=== PATIENT | female | born 1960 | race Hispanic/Latino ===

== ENCOUNTER → 2018-08-29 | Outpatient (REF) | payer MEDICARE, OTHER ==
[~2018-08-29] MED LIST: ATORVASTATIN CA40 MG PO; LISINOPRIL20 MG PO; METFORMIN500 MG PO; NOVOLOG MIX SC; TRILEPTAL150 M1 PO
[2018-08-29 13:03] LABS: HEMATOCRIT 35.7 % (37.0-47.0); HEMOGLOBIN 11.2 g/dl (12.0-16.0); IMMATURE GRANULOCYTES 0.4 % (0.0-5.0); MEAN CELL VOLUME 81.3 fL CALC (80.0-100.0); MEAN CORPUSCULAR HGB 25.5 pG CALC (26.0-32.0); MEAN CORPUSCULAR HGB CONC 31.4 g/L CALC (32.0-36.0); NEUT# 5.69 thou/uL (2.00-7.15); RED BLOOD COUNT 4.39 mill/uL (4.20-5.60); RED CELL DISTRI WIDTH 13.6 % (11.5-15.5)
== END | disposition home or self-care (01) ==
LOC: LAB 12:04
PROVIDERS: ATTEND Obstetrics & Gynecology
DX: N93.9 Abnormal uterine and vaginal bleeding, unspecified (principal)

== ENCOUNTER → 2018-09-01 | Outpatient (REF) | payer MEDICARE, OTHER | END | disposition home or self-care (01) | LOC: MAMMO 08:00 → ULTRASND 08:45 → MAMMO 12:37 | PROVIDERS: ATTEND Obstetrics & Gynecology | DX: Z12.31 Encounter for screening mammogram for malignant neoplasm of breast (principal); Z01.419 Encounter for gynecological examination (general) (routine) without abnormal findings; N93.9 Abnormal uterine and vaginal bleeding, unspecified ==

== ENCOUNTER → 2018-09-23 | Outpatient (REF) | payer MEDICARE, OTHER ==
[2018-09-23 10:37] LABS: HEMATOCRIT 34.9 % (37.0-47.0); HEMOGLOBIN 10.7 g/dl (12.0-16.0); IMMATURE GRANULOCYTES 0.3 % (0.0-5.0); MEAN CELL VOLUME 81.9 fL CALC (80.0-100.0); MEAN CORPUSCULAR HGB 25.1 pG CALC (26.0-32.0); MEAN CORPUSCULAR HGB CONC 30.7 g/L CALC (32.0-36.0); NEUT# 5.93 thou/uL (2.00-7.15); RED BLOOD COUNT 4.26 mill/uL (4.20-5.60); RED CELL DISTRI WIDTH 13.3 % (11.5-15.5)
[2018-09-23 10:37] LABS: URINE BILIRUBIN - DIPSTICK NEGATIVE (NEGATIVE); URINE BLOOD DIPSTICK SMALL (NEGATIVE); URINE COLOR YELLOW; URINE GLUCOSE - DIPSTICK NEGATIVE (NEGATIVE); URINE KETONE NEGATIVE (NEGATIVE); URINE LEUK ESTERASE TRACE (Negative); URINE NITRITE - DIPSTICK NEGATIVE (Negative); URINE PH 5.5 (4.5-8.0); URINE PROTEIN - DIPSTICK TRACE mg/dL (NEG-TRACE); URINE SPECIFIC GRAVITY >=1.030; URINE UROBILINOGEN - DIPSTICK 0.2 E.U./dL (0.2)
[2018-09-23 10:39] LABS: URINE CLARITY SL CLOUDY; URINE EPITHELIAL CELLS FEW EPI/hpf (0-FEW); URINE RBC 0-2 RBC/hpf (0-5); URINE WBC 0-2 WBC/hpf (0-5)
[2018-09-23 10:40] LABS: URINE BACTERIA RARE hpf
[2018-09-23 11:04] LABS: ALBUMIN 4.4 g/dL (3.2-5.0); ALKALINE PHOSPHATASE 89 u/l (38-126); ANION GAP 15 (6-22 (CALC)); BILIRUBIN, TOTAL 0.7 mg/dL (0.0-1.4); BUN 25 mg/dL (7-17); BUN/CREATININE RATIO 24 (12-20 (CALC)); CALCULATED LDLCHOLESTEROL 53 mg/dL (62-129 (CALC)); CARBON DIOXIDE 25 mmol/l (22-30); CHLORIDE 104 mmol/l (95-108); CHOLESTEROL HDL RATIO 2.7 (<4.4 (CALC)); GFR 58 ML/MIN (>=60 (CALC)); GFR FOR AFR.AMER. > 60 ML/MIN (>=60 (CALC)); HDL CHOLESTEROL 42 mg/dL (>=40); POTASSIUM 4.6 mmol/l (3.5-5.1); SGOT/AST 15 u/l (14-36); SODIUM 139 mmol/l (137-146); TOTAL CHOLESTEROL 114 mg/dl (0-199); TOTAL PROTEIN 8.1 g/dL (6.3-8.2); TOTAL TRIGLYCERIDES 95 mg/dl (30-149); VLDL CHOLESTROL 19 mg/dl (2-49 (CALC))
[2018-09-23 11:29] LABS: TSH, 3RD GENERATION 2.34 uIU/mL (0.47 - 4.68)
== END | disposition home or self-care (01) ==
LOC: LAB 09:49
PROVIDERS: Family Medicine; ATTEND Internal Medicine Endocrinology, Diabetes & Metabolism
DX: E11.65 Type 2 diabetes mellitus with hyperglycemia (principal); N18.9 Chronic kidney disease, unspecified; D51.8 Other vitamin B12 deficiency anemias; I10 Essential (primary) hypertension; E11.69 Type 2 diabetes mellitus with other specified complication; Z00.00 Encounter for general adult medical examination without abnormal findings; E55.9 Vitamin D deficiency, unspecified

== ENCOUNTER 2018-09-27 14:19 | Emergency (ER) | payer MEDICARE, OTHER ==
[~2018-09-27] VITALS: Ht 157.5 cm; Wt 61.4 kg
[2018-09-27] MEDS ORDERED: ATORVASTATIN CA40 MG PO (14:36)
[2018-09-27] MEDS ORDERED: LISINOPRIL20 MG PO (14:36)
[2018-09-27] MEDS ORDERED: METFORMIN500 MG PO (14:36)
[2018-09-27] MEDS ORDERED: TRILEPTAL150 M1 PO (14:37)
[2018-09-27] MEDS ORDERED: NOVOLOG MIX SC ×2 (14:37→14:38)
[2018-09-27 14:53] LABS: HEMOGLOBIN 11.2 g/dl (12.0-16.0); IMMATURE GRANULOCYTES 0.6 % (0.0-5.0); MEAN CELL VOLUME 83.7 fL CALC (80.0-100.0); MEAN CORPUSCULAR HGB 25.3 pG CALC (26.0-32.0); MEAN CORPUSCULAR HGB CONC 30.3 g/L CALC (32.0-36.0); NEUT# 10.14 thou/uL (2.00-7.15); RED BLOOD COUNT 4.42 mill/uL (4.20-5.60); RED CELL DISTRI WIDTH 13.3 % (11.5-15.5)
[2018-09-27 14:58] LABS: ALBUMIN 4.8 g/dL (3.2-5.0); ALKALINE PHOSPHATASE 86 u/l (38-126); ANION GAP 17 (6-22 (CALC)); BILIRUBIN, TOTAL 0.3 mg/dL (0.0-1.4); BUN 19 mg/dL (7-17); BUN/CREATININE RATIO 19 (12-20 (CALC)); CARBON DIOXIDE 25 mmol/l (22-30); CHLORIDE 107 mmol/l (95-108); GFR 58 ML/MIN (>=60 (CALC)); GFR FOR AFR.AMER. > 60 ML/MIN (>=60 (CALC)); POTASSIUM 3.6 mmol/l (3.5-5.1); SGOT/AST 26 u/l (14-36); SODIUM 145 mmol/l (137-146)
[2018-09-27 16:25] VITALS: BP 151/66
== END 2018-09-27 16:30 | disposition home or self-care (01) ==
LOC: ED 14:19
PROVIDERS: Emergency Medicine
DX: E11.649 Type 2 diabetes mellitus with hypoglycemia without coma (principal); Z79.4 Long term (current) use of insulin; R11.10 Vomiting, unspecified

== ENCOUNTER 2019-05-03 10:46 | Emergency (ER) | payer MEDICARE, OTHER ==
[~2019-05-03] VITALS: Ht 157.5 cm; Wt 59.0 kg
[2019-05-03] MEDS ORDERED: NOVOLOG MIX100 U/ML SC (10:57)
[2019-05-03] MEDS ORDERED: LORAZEPAM0.5 MG PO (10:57)
[2019-05-03] MEDS ORDERED: RISPERIDONE0.5 MG PO (10:57)
[2019-05-03 11:52] LABS: URINE BILIRUBIN - DIPSTICK SMALL (NEGATIVE); URINE BLOOD DIPSTICK SMALL (NEGATIVE); URINE COLOR YELLOW; URINE GLUCOSE - DIPSTICK NEGATIVE (NEGATIVE); URINE KETONE NEGATIVE (NEGATIVE); URINE LEUK ESTERASE NEGATIVE (NEGATIVE); URINE NITRITE - DIPSTICK NEGATIVE (Negative); URINE PROTEIN - DIPSTICK 100 mg/dL (NEG-TRACE); URINE SPECIFIC GRAVITY >=1.030; URINE UROBILINOGEN - DIPSTICK 0.2 E.U./dL (0.2)
[2019-05-03 11:53] LABS: HEMOGLOBIN 10.6 g/dl (12.0-16.0); IMMATURE GRANULOCYTES 0.5 % (0.0-5.0); MEAN CELL VOLUME 80.6 fL CALC (80.0-100.0); MEAN CORPUSCULAR HGB 25.1 pG CALC (26.0-32.0); MEAN CORPUSCULAR HGB CONC 31.2 g/L CALC (32.0-36.0); NEUT# 12.76 thou/uL (2.00-7.15); RED BLOOD COUNT 4.22 mill/uL (4.20-5.60); RED CELL DISTRI WIDTH 13.7 % (11.5-15.5)
[2019-05-03 12:02] LABS: URINE SQUAMOUS EPITHELIAL CELL FEW EPI/hpf (0-FEW)
[2019-05-03 12:22] LABS: ALBUMIN 4.5 g/dL (3.2-5.0); ALKALINE PHOSPHATASE 107 u/l (38-126); ANION GAP 18 (6-22 (CALC)); BILIRUBIN, TOTAL 0.4 mg/dL (0.0-1.4); BUN 18 mg/dL (7-17); BUN/CREATININE RATIO 24 (12-20 (CALC)); CARBON DIOXIDE 25 mmol/l (22-30); CHLORIDE 105 mmol/l (95-108); CREATININE 0.8 mg/dL (0.5-1.0); GFR > 60 ML/MIN (>=60 (CALC)); GFR FOR AFR.AMER. > 60 ML/MIN (>=60 (CALC)); LIPASE 36 u/l (23-300); POTASSIUM 4.2 mmol/l (3.5-5.1); SGOT/AST 19 u/l (14-36); SODIUM 143 mmol/l (137-146); TOTAL PROTEIN 8.2 g/dL (6.3-8.2)
[2019-05-03] MEDS ORDERED: ZITHROMAX250 MG PO (15:55)
[2019-05-03] MEDS ORDERED: AMOXICILLIN875 MG PO (15:55)
[2019-05-03] MEDS ORDERED: ZOFRAN4 MG/TAB PO (15:56)
[2019-05-03 16:07] VITALS: BP 152/81
== END 2019-05-03 16:30 | disposition home or self-care (01) ==
LOC: ED 10:46
DX: J18.9 Pneumonia, unspecified organism (principal); F70 Mild intellectual disabilities; E11.9 Type 2 diabetes mellitus without complications; I10 Essential (primary) hypertension; Z79.4 Long term (current) use of insulin
CPT/HCPCS: Q9967

== ENCOUNTER 2019-05-03 20:27 | Inpatient (IN) | payer MEDICARE, OTHER ==
[~2019-05-03] VITALS: Ht 157.5 cm; Wt 67.4 kg
[~2019-05-03 20:27] MED LIST changes: +AMOXICILLIN875 MG PO; +LORAZEPAM0.5 MG PO; +NOVOLOG MIX100 U/ML SC; +RISPERIDONE0.5 MG PO; +ZITHROMAX250 MG PO; +ZOFRAN4 MG/TAB PO
--- NOTE | 2019-05-03 20:44 | NUR ---
AMBULATED TO ROOM
[2019-05-03 21:48] LABS: AMYLASE 50 u/l (30-110); LIPASE 60 u/l (23-300)
--- NOTE | 2019-05-03 22:30 | NUR ---
PT RESTING...STARTING TO FEEL A LITTLE BETTER AFTER THE DILAUDID. PT AWAITING ADMISSION. RESP EASY REG. VSS.
[2019-05-04 00:33] VITALS: BP 146/61
--- NOTE | 2019-05-04 00:46 | NUR ---
PT. TAKEN TO MS FLOOR VIA STRETCHER, NO C/O AT THIS TIME.
--- NOTE | 2019-05-04 01:00 | NUR ---
PT. ARRIVED AT @0043 BY STRETCHER AND ACCOMPANIED BY NURSE LEOLA GREENBERG AND PT'S SISTER. ADMISSION ASSESSMENT COMPLETED BY LEOLA GREENBERG. PT. AND FAMILY ORIENTED TO CALL LIGHT, ROOM, AND POC. SISTER OF PT. IS AT BEDSIDE AND STAYING THE NIGHT, SHE IS THE DIRECTOR LIFE SCIENCES OF PT. PT. IS ABLE TO VERBALIZE HER NEEDS AND WANTS. PT. IS NAUSEOUS AND MEDICATED WITH ORDERED PRN PEPCID AND ZOFRAN AND ORDERED IVF STARTED; WILL CONTINUE TO MONITOR. TELEMETRY IN PLACE AND JAKE HOSE APPLIED TO BLE. ENCOURAGED TO CALL FOR ANY NEEDS. CALL LIGHT IS IN REACH. WILL CONTINUE TO MONITOR.
[2019-05-04 03:10] LABS: HEMOGLOBIN 9.1 g/dl (12.0-16.0); IMMATURE GRANULOCYTES 0.5 % (0.0-5.0); MEAN CELL VOLUME 82.4 fL CALC (80.0-100.0); MEAN CORPUSCULAR HGB CONC 30.3 g/L CALC (32.0-36.0); NEUT# 10.67 thou/uL (2.00-7.15); RED BLOOD COUNT 3.64 mill/uL (4.20-5.60); RED CELL DISTRI WIDTH 14.1 % (11.5-15.5)
[2019-05-04 03:21] VITALS: BP 139/73
--- NOTE | 2019-05-04 03:21 | NUR ---
PT. DENIES NEEDS/PAIN. SISTER AT BEDSIDE. VSS; IV SITE PATENT. ENCOURAGED TO CALL FOR ANY NEEDS. CALL LIGHT IS IN REACH.
[2019-05-04 03:33] LABS: ALBUMIN 3.8 g/dL (3.2-5.0); ALKALINE PHOSPHATASE 88 u/l (38-126); ANION GAP 13 (6-22 (CALC)); BILIRUBIN, TOTAL 0.3 mg/dL (0.0-1.4); BUN 18 mg/dL (7-17); BUN/CREATININE RATIO 22 (12-20 (CALC)); CARBON DIOXIDE 26 mmol/l (22-30); CHLORIDE 110 mmol/l (95-108); CREATININE 0.9 mg/dL (0.5-1.0); GFR > 60 ML/MIN (>=60 (CALC)); GFR FOR AFR.AMER. > 60 ML/MIN (>=60 (CALC)); POTASSIUM 4.3 mmol/l (3.5-5.1); SGOT/AST 21 u/l (14-36); SODIUM 145 mmol/l (137-146); TOTAL PROTEIN 7.3 g/dL (6.3-8.2)
--- NOTE | 2019-05-04 05:49 | NUR ---
PT. C/O SEVERE ABD PAIN AND MEDICATED WITH ORDERED PRN DILAUDID; WILL REASSESS. ALSO REPORTS NAUSEA AND IS TOO EARLY FOR ZOFRAN; WILL ADMINISTER SHORTLY WHEN IT IS DUE.
[2019-05-04 07:44] VITALS: BP 128/66
--- NOTE | 2019-05-04 08:00 | NUR ---
ASSESSMENT DONE. PT IS A&O X2. IVF INFUSING WELL. PT NPO. TELE IN PLACE. SAFETY PRECAUTIONS IN REINFORCED AND CALL LIGHT IN REACH. SISTER IN ROOM.
[2019-05-04 09:56] LABS: CHOLESTEROL HDL RATIO 2.7 (<4.4 (CALC)); MAGNESIUM 1.6 mg/dL (1.6-2.3)
--- NOTE | 2019-05-04 09:57 | NUR ---
PT STATED PAIN IN ABD 10/10 AND CRYING. PT VOMITED 100ML . MEDICATED PT WITH DILAUDID FOR PAIN IN ABD SEE EMAR. NOTIFIED JOSE MANUEL GRAVES RE: PAIN AND VOMITED. ORDERS RECEIVED.
--- NOTE | 2019-05-04 12:00 | NUR ---
PT HAS PAIN IN ABD 02/21. PAIN MEDICATION NOT DUE YET. PT NPO. PT AND SISTER AWAITING FOR THE MRI. PT DENIES ANY OTHER NEEDS AT THIS TIME. CALL LIGHT IN REACH.
[2019-05-04 15:35] LABS: URINE BILIRUBIN - DIPSTICK NEGATIVE (NEGATIVE); URINE BLOOD DIPSTICK TRACE-LYSED (NEGATIVE); URINE COLOR YELLOW; URINE GLUCOSE - DIPSTICK NEGATIVE (NEGATIVE); URINE KETONE NEGATIVE (NEGATIVE); URINE LEUK ESTERASE NEGATIVE (NEGATIVE); URINE NITRITE - DIPSTICK NEGATIVE (Negative); URINE PH 5.5 (4.5-8.0); URINE PROTEIN - DIPSTICK TRACE mg/dL (NEG-TRACE); URINE SPECIFIC GRAVITY >=1.030; URINE UROBILINOGEN - DIPSTICK 0.2 E.U./dL (0.2)
--- NOTE | 2019-05-04 16:00 | NUR ---
PT DOWN IN MRI. ALI FROM MRI CALLED UNABLE TO DO MRI BECAUSE PT IS TRYING TO GET OUT . NOTIFIED JOSE MANUEL GRAVES
[2019-05-04 16:30] VITALS: BP 138/73
--- NOTE | 2019-05-04 19:10 | NUR ---
REPORT RECIEVED FROM LEOLA JIMÉNEZ. PT NOT ON FLOOR PT IN RADIOLOGY FOR ULTRA SOUND.
[2019-05-04 19:20] VITALS: BP 140/67
--- NOTE | 2019-05-04 21:18 | NUR ---
PT RESTING IN BED, SISTER AT BEDSIDE. PT CRYING IN PAIN. CALL CENTER SUPPORT REPRESENTATIVE PROVIDED PT WITH A WARM PACK. PT EDUCATED ON PAIN MED SCHEDULE. MD TO BE NOTIFIED. SAFETY PRECAUTIONS IN PLACE. WILL CONTINUE TO MONITOR.
[2019-05-04 23:45] VITALS: BP 138/78
--- NOTE | 2019-05-05 00:14 | NUR ---
PT RESTING IN BED. PROVIDED PT WITH NEW WARM PACKS PER REQUEST. PT STATES IT'S HELPING WITH HER PAIN. SAFETY PRECAUTIONS IN PLACE. WILL CONTINUE TO MONITOR.
[2019-05-05 04:42] VITALS: BP 143/79
--- NOTE | 2019-05-05 04:48 | NUR ---
PT REFUSING TO GET UP FOR DAILY WEIGHT. PT COMPLAINS OF NOT SLEEPING WELL AND JUST WANTS TO REST. SAFETY PRECAUTIONS IN PLACE. WILL CONTINUE TO MONITOR.
--- NOTE | 2019-05-05 07:13 | NUR ---
REPORT WAS RECEIVED FROM MATY. PT STATED PAIN IS 10/10 IN ABD. SISTER IN ROOM TEARFUL FOR PT HAVING PAIN. MEDICATED PT WITH DILAUDID SEE EMAR. PT IS A&O X2. PT NPO. IVF INFUSING WELL. CALL LIGHT IN REACH.
[2019-05-05 07:43] LABS: HEMATOCRIT 28.6 % (37.0-47.0); HEMOGLOBIN 8.6 g/dl (12.0-16.0); MEAN CELL VOLUME 82.7 fL CALC (80.0-100.0); MEAN CORPUSCULAR HGB 24.9 pG CALC (26.0-32.0); MEAN CORPUSCULAR HGB CONC 30.1 g/L CALC (32.0-36.0); RED BLOOD COUNT 3.46 mill/uL (4.20-5.60)
[2019-05-05 08:02] LABS: ALBUMIN 3.4 g/dL (3.2-5.0); ALKALINE PHOSPHATASE 81 u/l (38-126); ANION GAP 15 (6-22 (CALC)); BUN 17 mg/dL (7-17); BUN/CREATININE RATIO 19 (12-20 (CALC)); CARBON DIOXIDE 23 mmol/l (22-30); CHLORIDE 110 mmol/l (95-108); CREATININE 0.9 mg/dL (0.5-1.0); GFR > 60 ML/MIN (>=60 (CALC)); GFR FOR AFR.AMER. > 60 ML/MIN (>=60 (CALC)); POTASSIUM 3.8 mmol/l (3.5-5.1); SGOT/AST 23 u/l (14-36); SODIUM 144 mmol/l (137-146); TOTAL PROTEIN 6.8 g/dL (6.3-8.2)
[2019-05-05 08:03] LABS: BILIRUBIN, TOTAL 0.5 mg/dL (0.0-1.4)
[2019-05-05 08:08] VITALS: BP 137/48
--- NOTE | 2019-05-05 11:46 | NUR ---
PT DRINKING FLUIDS. PT STATED PAIN IN ABD IS 8/10. MEDICATED PT WITH DILAUDID SEE EMAR. IVF INFUSING WELL. EDUCATED PT HOW TO USE THE I.S. FAMILY FRIEND IN ROOM. CALL LIGHT IN REACH.
[2019-05-05 11:53] VITALS: BP 141/70
--- NOTE | 2019-05-05 13:26 | NUR ---
PT WENT DOWN TO CT VIA WHEELCHAIR BY VOLUNTEER.
[2019-05-05 15:24] VITALS: BP 143/74
--- NOTE | 2019-05-05 16:00 | NUR ---
PT IS RESTING IN BED WITH NO S/S OF DISTRESS NOTED. PT DENIES NEEDS AND FAMILY FRIEND IN ROOM. CALL LIGHT IN REACH.
[2019-05-05 19:10] VITALS: BP 125/73
--- NOTE | 2019-05-05 20:00 | NUR ---
RECEIVED REPORT FROM NURSE CASTANEDA, PATIENT RESTING IN BED WITH AN ONGOING IV OF NS @75CC/HR INFUSING WELL, WITH EVEN UNLABORED BREATHING CALL LIGHT AT REACH.
--- NOTE | 2019-05-05 20:02 | NUR ---
RECEIVED A PHONECALL FROM [facility] AND ORDERED CT OF THE ABDOMEN AND PELVIS USED ORAL CONTRAST.
[2019-05-05 23:47] VITALS: BP 136/63
--- NOTE | 2019-05-06 00:54 | NUR ---
PATIENT TRANSPORTED FOR DT AF ABDOMEN AT THIS TIME.
--- NOTE | 2019-05-06 01:18 | NUR ---
PATIENT BACK IN ROOM, PATOIENT TOLERATED PROCEDURE, ASSISTED TO BATHROOM, ASSISTED BACK IN BED
[2019-05-06 03:57] VITALS: BP 142/66
--- NOTE | 2019-05-06 04:47 | NUR ---
PATIENT APPEARS TO BE RESTING IN BED WITH EYES CLOSED REMAINS ON O2 @2LPM VIA NC WITH EVEN UNLABORED BREATHING, PLASTERER TENDER IN ROOM CALL LIGHT AT REACH.
[2019-05-06 05:04] LABS: HEMATOCRIT 26.9 % (37.0-47.0); HEMOGLOBIN 8.1 g/dl (12.0-16.0); IMMATURE GRANULOCYTES 0.5 % (0.0-5.0); MEAN CORPUSCULAR HGB 24.7 pG CALC (26.0-32.0); MEAN CORPUSCULAR HGB CONC 30.1 g/L CALC (32.0-36.0); NEUT# 9.04 thou/uL (2.00-7.15); RED BLOOD COUNT 3.28 mill/uL (4.20-5.60); RED CELL DISTRI WIDTH 13.7 % (11.5-15.5)
[2019-05-06 05:20] LABS: ANION GAP 11 (6-22 (CALC)); BUN 16 mg/dL (7-17); BUN/CREATININE RATIO 17 (12-20 (CALC)); CARBON DIOXIDE 24 mmol/l (22-30); CHLORIDE 109 mmol/l (95-108); CREATININE 0.9 mg/dL (0.5-1.0); GFR > 60 ML/MIN (>=60 (CALC)); GFR FOR AFR.AMER. > 60 ML/MIN (>=60 (CALC)); MAGNESIUM 1.6 mg/dL (1.6-2.3); SODIUM 141 mmol/l (137-146)
--- NOTE | 2019-05-06 06:55 | NUR ---
REPORT RECEIVED FROM LEOLA KUO. PT RESTING IN BED, SISTER AT BEDSIDE. NO S/S OF DISTRESS AT THIS TIME SAFETY PRECAUTIONS IN PLACE. WILL CONTINUE TO MONITOR.
--- NOTE | 2019-05-06 07:42 | NUR ---
PT RESTING IN BED, SISTER AT BEDSIDE. RESPIRATIOS EVEN AND UNLABORED ON O2 @ 2L VIA NC. LUNGS SOUND COARSE. PEDAL PULSES ARE STRONG. PT REPORTS HAVING PAIN OF AN 8/10, PT TO BE MEDICATED PER EMAR ORDERS. TELE IN PLACE. #24 LW PATENT AND APPEARS HEALTHY. SAFETY PRECAUTIONS IN PLACE. WILL CONTINUE TO MONITOR.
[2019-05-06 07:44] VITALS: BP 149/77
--- NOTE | 2019-05-06 09:39 | NUR ---
MD AT BEDSIDE DISCUSSING PLAN OF CARE
[2019-05-06 11:16] VITALS: BP 156/81
--- NOTE | 2019-05-06 12:30 | NUR ---
PT RESTING IN BED. RESPIRATIONS EVEN AND UNLABORED ON O2 @ 2L VIA NC. NO S/S OF DISTRESS AT THIS TIME. SAFETY PRECAUTIONS IN PLACE. WILL CONTINUE TO MONITOR.
[2019-05-06 15:47] VITALS: BP 137/75
--- NOTE | 2019-05-06 15:58 | NUR ---
CALLED AND SPOKE TO ZAID AT [facility] AT [phone] FOR AN UPDATE ON THE PT STATUS. ZAID HAD STATED SHE IS WAITING ON DISCHARGES. ALSO ASKED IF WE HAVE AN ACCEPTING. ZAID STATED YES IT IS DR. GREGORY. SO WE ARE JUST WAITING ON A BED TO OPEN.
--- NOTE | 2019-05-06 16:25 | NUR ---
PT RESTING IN BED. RESPIRATIONS EVEN AND UNLABORED ON O2 @ 2L VIA NC. CALL SAXENA WITHIN REACH. WILL CONTINUE TO MONITOR.
--- NOTE | 2019-05-06 17:00 | NUR ---
RECEIVED CALL FROM [facility] IN REGARDS TO THIS PT. GAVE ME ROOM NUMBER [id number] FOR PT AT [facility]. @[id number] CALLED [facility] AT SPOKE TO CLARISSA. GAVE HER ALL INFORMATION ON PT. STATED THE TRANSPORT WILL BE HERE IN 30 MINUTES.
--- NOTE | 2019-05-06 17:41 | NUR ---
Discharge instructions given. Patient verbalizes understanding of same. Discharged in stable condition via Medical Transport to [facility] BY [facility] ACCOMPANIED BY family. All belongings sent with pt.
--- NOTE | 2019-05-06 18:41 | NUR ---
REPORT CALLED TO LEOLA KWON AT [facility]
== END 2019-05-06 17:38 | disposition short-term general hospital (02) | DRG 545 ==
LOC: ED 20:27 → ED-I 21:26 → ED 22:57 → MS2 22:58
PROVIDERS: Emergency Medicine; Internal Medicine; Nurse Practitioner Family; ADMIT Internal Medicine; ATTEND Internal Medicine
DX: M35.9 Systemic involvement of connective tissue, unspecified (principal); J18.9 Pneumonia, unspecified organism; I77.6 Arteritis, unspecified; E11.9 Type 2 diabetes mellitus without complications; I10 Essential (primary) hypertension; E78.5 Hyperlipidemia, unspecified; D64.9 Anemia, unspecified; F32.9 Major depressive disorder, single episode, unspecified; Z79.4 Long term (current) use of insulin; F79 Unspecified intellectual disabilities; E27.9 Disorder of adrenal gland, unspecified; Z23 Encounter for immunization
CPT/HCPCS: G0378; S0164

== ENCOUNTER 2019-07-25 11:29 | Inpatient (IN) | payer MEDICARE, OTHER ==
[~2019-07-25] VITALS: Ht 157.5 cm; Wt 66.8 kg
--- NOTE | 2019-07-25 11:40 | NUR ---
PATIENT TO ROOM VIA WHEELCHAIR. ASSISTED ONTO STRETCHER. SISTER AT BEDSIDE.
[2019-07-25 12:22] LABS: HEMOGLOBIN 9.8 g/dl (12.0-16.0); IMMATURE GRANULOCYTES 0.3 % (0.0-5.0); MEAN CELL VOLUME 80.4 fL CALC (80.0-100.0); MEAN CORPUSCULAR HGB 24.6 pG CALC (26.0-32.0); MEAN CORPUSCULAR HGB CONC 30.6 g/L CALC (32.0-36.0); NEUT# 7.73 thou/uL (2.00-7.15); RED BLOOD COUNT 3.98 mill/uL (4.20-5.60); RED CELL DISTRI WIDTH 13.5 % (11.5-15.5)
[2019-07-25 12:46] LABS: ALKALINE PHOSPHATASE 99 u/l (38-126); ANION GAP 15 (6-22 (CALC)); BILIRUBIN, TOTAL 0.5 mg/dL (0.0-1.4); BUN 16 mg/dL (7-17); BUN/CREATININE RATIO 23 (12-20 (CALC)); CARBON DIOXIDE 25 mmol/l (22-30); CHLORIDE 105 mmol/l (95-108); CREATININE 0.7 mg/dL (0.5-1.0); GFR > 60 ML/MIN (>=60 (CALC)); GFR FOR AFR.AMER. > 60 ML/MIN (>=60 (CALC)); POTASSIUM 4.5 mmol/l (3.5-5.1); SGOT/AST 31 u/l (14-36); SODIUM 140 mmol/l (137-146); TOTAL PROTEIN 7.9 g/dL (6.3-8.2)
--- NOTE | 2019-07-25 12:51 | NUR ---
CRITICAL LAB LACTIC ACID 2.4 REPORTED TO SENIOR ACCOUNT EXECUTIVE
--- NOTE | 2019-07-25 13:32 | NUR ---
PT RESTING QUIETLY ON STRETCHER. FLUIDS INFUSING
--- NOTE | 2019-07-25 14:10 | NUR ---
PT ALERT/ORIENTED X3, DAUGHTER AT BEDSIDE. IV FLUIDS INFUSING. RIGHT KNEE FEELS WARM. VSS. WARM BLANKET GIVEN. 2ND LACTIC BACK 3.2 DR NOTIFIED.
--- NOTE | 2019-07-25 14:57 | NUR ---
VANCOMYACIN INFUSING AND 2ND BAG OF FLUIDS. PT AND FAMILY NOTIFIED OF POSSIBLE ADMISSION, PT VOICES UNDERSTANDING.
--- NOTE | 2019-07-25 16:13 | NUR ---
TRIED TO CALL REPORT BUT NURSE UNAVAILABLE
--- NOTE | 2019-07-25 16:22 | NUR ---
SPOKE WITH DEE DEE Hart FOR ORDERS AND SHE WILL PLACE ORDERS SOON POSSIBLE. PT RESTING QUIETLY ON STRETCHER
--- NOTE | 2019-07-25 16:34 | NUR ---
SPOKE WITH SISTER AND ASKED IF SHE COULD BRING THE PTS TRILEPTAL IN FOR MEDS WHILE IN HOSPITAL PER DEE DEE. SHE STATED SHE WOULD
--- NOTE | 2019-07-25 16:39 | NUR ---
REPORT GIVEN TO MED SURG FOR CONTINUATION OF CARE
--- NOTE | 2019-07-25 16:50 | NUR ---
PT ARRIVED TO MS2 VIA WHEELCHAIR. ACCOMPANIED BY ER NURSE. PT ALERT AND ORIENTED X3,PT IS MENTALLY CHALLENGED. RESP EVEN AND UNLABORED. DISCUSSED POC, ORIENTED PT TO ROOM AND CALL LIGHT. PT STATES SHE WAS IN [place] IN [place] FOR PNEUMONIA. NOTED CRACKLES IN BASES OF LUNGS. SISTER AT BEDSIDE. ADMISSION ASSESSMENT COMPLETED. CALL LIGHT IN REACH, CONTINUE TO MONITOR.
--- NOTE | 2019-07-25 16:59 | NUR ---
PT TAKEN TO FLOOR PER STRETCHER.
[2019-07-25 17:00] VITALS: BP 122/66
[2019-07-25 18:45] VITALS: BP 130/70
--- NOTE | 2019-07-25 19:03 | NUR ---
REPORT RECEIVED FROM RADHA SORIANO. PT RESTING IN BED. SISTER AT BEDSIDE. SAFETY PRECAUTIONS IN PLACE. WILL CONTINUE TO MONITOR.
--- NOTE | 2019-07-25 21:35 | NUR ---
PT RESTING IN BED. RESPIRATIONS EVEN AND UNLABORED. CRACKLES NOTED THROUGH OUT LUNGS. PEDAL PULSE STRONG. PT DENIES ANY PAIN OR DISCOMFORT AT THIS TIME. SAFETY PRECAUTIONS IN PLACE. WILL CONTINUE TO MONITOR
--- NOTE | 2019-07-26 00:25 | NUR ---
PT RESTING IN BED, NO S/S OF DISTRESS AT THIS TIME. SAFETY PRECAUTIONS IN PLACE. WILL CONTINUE TO MONITOR.
--- NOTE | 2019-07-26 03:53 | NUR ---
PT RESTING IN BED. RESPIRATIONS EVEN AND UNLABORED ON RA. NO S/S OF DISTRESS AT THIS TIME. WILL CONTINUE TO MONITOR.
[2019-07-26 03:58] VITALS: BP 108/62
[2019-07-26 05:39] LABS: HEMATOCRIT 26.8 % (37.0-47.0); HEMOGLOBIN 8.1 g/dl (12.0-16.0); IMMATURE GRANULOCYTES 0.1 % (0.0-5.0); MEAN CELL VOLUME 81.2 fL CALC (80.0-100.0); MEAN CORPUSCULAR HGB 24.5 pG CALC (26.0-32.0); MEAN CORPUSCULAR HGB CONC 30.2 g/L CALC (32.0-36.0); NEUT# 4.53 thou/uL (2.00-7.15); RED BLOOD COUNT 3.3 mill/uL (4.20-5.60); RED CELL DISTRI WIDTH 13.5 % (11.5-15.5)
[2019-07-26 05:49] LABS: ANION GAP 12 (6-22 (CALC)); BUN 13 mg/dL (7-17); BUN/CREATININE RATIO 20 (12-20 (CALC)); CARBON DIOXIDE 21 mmol/l (22-30); CHLORIDE 111 mmol/l (95-108); CREATININE 0.7 mg/dL (0.5-1.0); GFR > 60 ML/MIN (>=60 (CALC)); GFR FOR AFR.AMER. > 60 ML/MIN (>=60 (CALC)); POTASSIUM 3.6 mmol/l (3.5-5.1); SODIUM 141 mmol/l (137-146)
[2019-07-26 07:24] VITALS: BP 114/69
--- NOTE | 2019-07-26 07:24 | NUR ---
PT SITTING IN BED A&O. NO DISTRESS NOTED. SIDE RAILS PADDED DUE TO SEIZURE PERCAUTIONS. CRACKLES HEARD UPON AUSCULTATION. ASSISTED PT IN A HIGH FOWLERS POSITION. NO OTHER NEEDS AT THIS TIME. DISCUSSED POC. ASSESSMENT COMPLETED. CALL LIGHT IN REACH CONTINUE TO MONITOR.
--- NOTE | 2019-07-26 07:27 | NUR ---
Vancomycin consult Age: 58 yo Serum creatinine: 0.5 mg/dL Height: 62.0 Inches Weight (kg): 66.82 IBW (kg): 50.10 Dosing wt(kg): 66.82 Estimated Creatinine clearance (ml/min): 94 Vd (liters): 46.8 (factor used: 0.7 L/kg) David (hr-1): 0.087 Half life (hrs): 7.97 Conitinue Vancomycin 1000 mg q 12 hrs at 0300 & 1500 with an expected Cpeak of 30 mcg/ml and an expected Ctrough of 13 mcg/ml. Trough on 07/27/19 at 1400.
--- NOTE | 2019-07-26 08:45 | NUR ---
PT SITTING IN BED WITH SISTER AT BEDSIDE. CALL LIGHT IN REACH. CONTINUE TO MONITOR.
--- NOTE | 2019-07-26 09:43 | NUR ---
IV MAGNESIUM INITATED. IV SITE INFILTRATED. SWELLING, PAIN AND INDURATION TO IV SITE. IV REMOVED, INTACT UPON REMOVAL. X 2 ATTEMPTS UNSUCCESSFUL. JOSE LUIS FUNEZ NOTIFIED.
--- NOTE | 2019-07-26 12:53 | NUR ---
AND JOSE LUIS AT BEDSIDE DISCUSSING POC.
[2019-07-26 14:50] VITALS: BP 133/72
--- NOTE | 2019-07-26 15:23 | NUR ---
PT SITTING IN BED WITH SISTER AT BEDSIDE. NO DISTRESS NOTED. CALL LIGHT IN REACH. CONTINUE TO MONITOR.
[2019-07-26 19:00] VITALS: BP 127/66
--- NOTE | 2019-07-26 19:08 | NUR ---
REPORT RECEIVED FROM RADHA GUTIÉRREZ. PT RESTING IN BED. FAMILY AT BEDSIDE. SAFETY PRECAUTIONS IN PLACE. WILL CONTINUE TO MONITOR.
--- NOTE | 2019-07-26 21:20 | NUR ---
PT RESTING IN BED. RESPIRATIONS EVEN AND UNLABORED ON RA, LUNGS SOUND DIMINISHED. PEDAL PULSES ARE STRONG. PT DENIES ANY PAIN OR DISCOMFORT AT THIS TIME. SAFETY PRECAUTIONS IN PLACE. WILL CONTINUE OT MONITOR.
--- NOTE | 2019-07-27 00:24 | NUR ---
PT RESTING IN BED. RESPIRATIONS EVEN AND UNLABORED ON RA. NO S/S OF DISTRESS
--- NOTE | 2019-07-27 04:10 | NUR ---
PT RESTING IN BED. NO S/S OF DISTRESS AT THIS TIME.
[2019-07-27 04:19] VITALS: BP 108/62
[2019-07-27 04:54] LABS: HEMATOCRIT 27.1 % (37.0-47.0); HEMOGLOBIN 8.2 g/dl (12.0-16.0); IMMATURE GRANULOCYTES 0.3 % (0.0-5.0); MEAN CELL VOLUME 80.7 fL CALC (80.0-100.0); MEAN CORPUSCULAR HGB 24.4 pG CALC (26.0-32.0); MEAN CORPUSCULAR HGB CONC 30.3 g/L CALC (32.0-36.0); NEUT# 5.38 thou/uL (2.00-7.15); RED BLOOD COUNT 3.36 mill/uL (4.20-5.60); RED CELL DISTRI WIDTH 13.7 % (11.5-15.5)
[2019-07-27 05:05] LABS: ANION GAP 12 (6-22 (CALC)); BUN 17 mg/dL (7-17); BUN/CREATININE RATIO 25 (12-20 (CALC)); CARBON DIOXIDE 21 mmol/l (22-30); CHLORIDE 111 mmol/l (95-108); CREATININE 0.7 mg/dL (0.5-1.0); GFR > 60 ML/MIN (>=60 (CALC)); GFR FOR AFR.AMER. > 60 ML/MIN (>=60 (CALC)); MAGNESIUM 1.2 mg/dL (1.6-2.3); POTASSIUM 3.3 mmol/l (3.5-5.1); SODIUM 141 mmol/l (137-146)
--- NOTE | 2019-07-27 07:00 | NUR ---
KALEB STARR REPORT, PT RESTING IN BED, ALERT WITH FLAT EFFECT, DENIES PAIN AT THIS TIME, CALL SAXENA IN REACH AND BED IN LOWEST POSITION.
[2019-07-27 07:24] VITALS: BP 135/53
--- NOTE | 2019-07-27 10:19 | NUR ---
ASSISTED TO BR THEN BACK TO BED, GAIT UNSTEADY.
--- NOTE | 2019-07-27 12:00 | NUR ---
ORIENTED TO PLACE AND PERSON, KNOWS , RESPONDS APPROPRIATELY TO QUESTIONS AND COMMANDS.
--- NOTE | 2019-07-27 12:00 | NUR ---
SITTING UP IN RECLINER, ALL NEEDS MET, CALL SAXENA IN REACH.
[2019-07-27 15:35] VITALS: BP 129/75
--- NOTE | 2019-07-27 15:54 | NUR ---
Vancomycin consult tr<5 due to missed doses because of no iv site. trough to be re drawn on 07/29/19 at 0200.
--- NOTE | 2019-07-27 16:00 | NUR ---
TRAINING TECHNICIAN/SISTER JAYSHREE VISITING, INQUIRING ABOUT PROCEDURE SHE REPORTED MEDICAL STAFF INFORMED HER ABOUT, DATE PITTER NOTIFIED AND REPORTED SHE CALLED RADIOLOGY BUT IS STILL AWAITING A RESPONSE, FAMILY NOTIFIED.
[2019-07-27 20:25] VITALS: BP 122/72
[2019-07-28 03:25] VITALS: BP 115/70
--- NOTE | 2019-07-28 05:00 | NUR ---
PATIENT A/OX4, NO C/O PAIN, NO S/S RESP DISTRESS, PATIENT ON ROOM AIR, WILL CONTINUE MONITOR PATIENT HOURLY ROUNDING, CALL LIGHT WITHIN REACH
[2019-07-28 06:31] LABS: HEMATOCRIT 27.6 % (37.0-47.0); HEMOGLOBIN 8.3 g/dl (12.0-16.0); IMMATURE GRANULOCYTES 0.4 % (0.0-5.0); MEAN CORPUSCULAR HGB 24.1 pG CALC (26.0-32.0); MEAN CORPUSCULAR HGB CONC 30.1 g/L CALC (32.0-36.0); NEUT# 6.34 thou/uL (2.00-7.15); RED BLOOD COUNT 3.45 mill/uL (4.20-5.60); RED CELL DISTRI WIDTH 13.5 % (11.5-15.5)
[2019-07-28 06:50] LABS: BUN 17 mg/dL (7-17); BUN/CREATININE RATIO 21 (12-20 (CALC)); CARBON DIOXIDE 20 mmol/l (22-30); CHLORIDE 110 mmol/l (95-108); CREATININE 0.8 mg/dL (0.5-1.0); GFR > 60 ML/MIN (>=60 (CALC)); GFR FOR AFR.AMER. > 60 ML/MIN (>=60 (CALC)); SODIUM 139 mmol/l (137-146)
[2019-07-28 06:59] LABS: ANION GAP 13 (6-22 (CALC)); MAGNESIUM 1.7 mg/dL (1.6-2.3); POTASSIUM 4.2 mmol/l (3.5-5.1)
--- NOTE | 2019-07-28 07:00 | NUR ---
AWAKE AND ALERT RESTING IN BED, ASSISTED TO CHAIR FOR MEAL, C/O RIGHT KNEE PAIN, MED GIVEN AND WARM COMPRESS APPLIED, CALL SAXENA IN REACH.
[2019-07-28 08:56] VITALS: BP 160/64
--- NOTE | 2019-07-28 11:15 | NUR ---
SISTER/MECHANICAL ADJUSTER HERE INQUIRING ABOUT PTS CONDITION AND PLAN OF CARE, INFORMATION GIVEN AND INSTRUCTION TO ADDRESS RELEVANT QUESTIONS WITH MEDICAL STAFF. MEDICAL TEAM ROUNDING AND ADDRESS CONCERNS WITH SISTER.
[2019-07-28 16:04] VITALS: BP 136/58
--- NOTE | 2019-07-28 16:43 | NUR ---
PT WAS SEEN FOR GT. SHE WAS I ON BED MOB AND TRANSFERS W/O DIFFICULTY. SHE AMBULATED IN THE HALLWAY WITH RW AND SBA W/ STEADY GAIT. SHE IS WFL HOWEVER LACKS SAFETY AWARENESS DUE TO MENTATION IMPAIRMENT. PHYSICAL THERAPY IS NOT INDICATED ANYMORE AT THIS TIME. SHE WILL BENEFIT TO BE DISCHARGED HOME WHERE SHE HAS SUPPORTIVE FAMILY TO ASSIST/GUIDE HER. HER AMPAC SCORE IS 21 POINTS.
--- NOTE | 2019-07-28 17:25 | NUR ---
RESTING IN BED, REPORTS RELIEF FROM KNEE PAIN, ALL NEEDS MET/ADDRESS, CALL SAXENA IN REACH.
[2019-07-28 18:55] VITALS: BP 140/68
--- NOTE | 2019-07-28 19:30 | NUR ---
PATIENT RESTING IN BED-AWAKE ALERT WITH NO COMPLAINTS AT THIS TIME. SALINE LOCK TO RIGHT FOREARM-SITE REMAINS HEALTHY AT THIS TIME. PATIENT IS ROMANIAN SPEAKING ONLY. CALL LIGHT IN REACH. WILL CONT TO MONITOR.
--- NOTE | 2019-07-28 22:00 | NUR ---
PATIENT RESTING IN BED. COLE BERMEO AT BEDSIDE TO TRANLATE. CAPE VERDEAN SPEAKING ONLY. PATIENT STATES THAT SHE HAD BM TODAY. STATES NO PROBLEM WITH URINATION. ACCU-CHECK WAS 141-NO NOVALOG COVERAGE. C/O LEFT KNEE PAIN. MEDICATED WITH LORTAB 5/325MG PO. LUNGS CRACKLES THROUGHOUT. SAFETY PRECAUTIONS REINFORCED. CALL LIGHT IN REACH. WILL CONT TO MONITOR.
--- NOTE | 2019-07-29 01:00 | NUR ---
PATIENT APPEARS SLEEPING WITH HOB SLIGHTLY ELEVATED. EYES CLOSED AND RESP ARE EVEN AND UNLABORED. CALL LIGHT IN REACH. WILL CONT TO MONITOR.
--- NOTE | 2019-07-29 03:11 | NUR ---
VANCO TROUGH 15-VANCO HUNG ORDERED VIA RIGHT FOREARM IV SITE. NO COMPLAINTS AT THIS TIME. SAFETY PRECAUTIONS REINFORCED. CALL LIGHT IN REACH. WILL CONT TO MONITOR.
[2019-07-29 03:50] VITALS: BP 152/78
--- NOTE | 2019-07-29 04:56 | NUR ---
PATIENT MIN ASSIST TO THE BR-HAD BM AND VOIDING QS. RETURNED TO BED. NO VANCO HAS FINISHED. NO COMPLAINTS AT THIS TIME. CALL LIGHT IN REACH. WILL CONT TO MONITOR,
[2019-07-29 05:04] LABS: HEMATOCRIT 26.5 % (37.0-47.0); HEMOGLOBIN 8.2 g/dl (12.0-16.0); MEAN CELL VOLUME 79.6 fL CALC (80.0-100.0); MEAN CORPUSCULAR HGB 24.6 pG CALC (26.0-32.0); MEAN CORPUSCULAR HGB CONC 30.9 g/L CALC (32.0-36.0); RED BLOOD COUNT 3.33 mill/uL (4.20-5.60); RED CELL DISTRI WIDTH 13.7 % (11.5-15.5)
[2019-07-29 05:36] LABS: ANION GAP 13 (6-22 (CALC)); BUN 19 mg/dL (7-17); BUN/CREATININE RATIO 28 (12-20 (CALC)); CARBON DIOXIDE 20 mmol/l (22-30); CHLORIDE 109 mmol/l (95-108); CREATININE 0.7 mg/dL (0.5-1.0); GFR > 60 ML/MIN (>=60 (CALC)); GFR FOR AFR.AMER. > 60 ML/MIN (>=60 (CALC)); MAGNESIUM 1.4 mg/dL (1.6-2.3); SODIUM 138 mmol/l (137-146)
--- NOTE | 2019-07-29 07:00 | NUR ---
SHIFT CHANGE REPORT, PT PLEASANTLY AWAKE AND ALERT, DENIES PAIN TO LEFT KNEE AT THIS TIME, NO OTHER COMPLAINS, ASSISTED TO CHAIR AND SET UP FOR MEAL, CALL SAXENA IN REACH.
[2019-07-29 07:36] VITALS: BP 124/58
[2019-07-29 09:10] VITALS: BP 124/58
[2019-07-29] MEDS ORDERED: DOXYCYCL HYC100 MG PO (11:23)
[2019-07-29] MEDS ORDERED: PREDNISONE10 MG PO (11:23)
--- NOTE | 2019-07-29 12:00 | NUR ---
MEDICAL TEAM ROUNDING, DISCUSSED D/C PLANS WITH PT AND FAMILY,BOTH STATED UNDERSTANDING.
--- NOTE | 2019-07-29 16:51 | NUR ---
Discharge instructions given. Patient verbalizes understanding of same. Discharged in fair condition via Ambulatory to Home with family. All belongings sent with pt.
== END 2019-07-29 16:50 | disposition home health service (06) | DRG 603 ==
LOC: ED 11:29 → ED-I 12:33 → ED 14:58 → MS2 14:59
PROVIDERS: Nurse Practitioner Family; ADMIT Internal Medicine; ATTEND Internal Medicine
DX: L03.116 Cellulitis of left lower limb (principal); E87.2 Acidosis; E11.9 Type 2 diabetes mellitus without complications; I10 Essential (primary) hypertension; F79 Unspecified intellectual disabilities; E78.5 Hyperlipidemia, unspecified; E83.42 Hypomagnesemia; Z79.4 Long term (current) use of insulin
CPT/HCPCS: G0378; J1650; J3475

== ENCOUNTER 2022-01-16 10:18 | Emergency (ER) | payer MEDICARE, OTHER ==
[~2022-01-16] VITALS: Ht 157.5 cm; Wt 61.3 kg
[~2022-01-16 10:18] MED LIST changes: +DOXYCYCL HYC100 MG PO; +PREDNISONE10 MG PO
[2022-01-16 11:51] LABS: HEMATOCRIT 29.7 % (37.0-47.0); HEMOGLOBIN 8.7 g/dl (12.0-16.0); IMMATURE GRANULOCYTES 0.4 % (0.0-5.0); MEAN CELL VOLUME 84.1 fL CALC (80.0-100.0); MEAN CORPUSCULAR HGB 24.6 pG CALC (26.0-32.0); MEAN CORPUSCULAR HGB CONC 29.3 g/dL CAL (32.0-36.0); NEUT# 9.62 thou/uL (2.00-7.15); RED BLOOD COUNT 3.53 mill/uL (4.20-5.60); RED CELL DISTRI WIDTH 14.2 % (11.5-15.5)
[2022-01-16] MEDS ORDERED: ZINC220 MG (11:59)
[2022-01-16] MEDS ORDERED: VITAMIN C1000 MG PO (11:59)
[2022-01-16] MEDS ORDERED: XARELTO10 MG PO (11:59)
[2022-01-16] MEDS ORDERED: MYCOPHENOLAT500 MG PO (12:00)
[2022-01-16] MEDS ORDERED: PAROXETINE10 MG PO (12:00)
[2022-01-16] MEDS ORDERED: NORVASC10 M1 PO (12:00)
[2022-01-16] MEDS ORDERED: TRESIBA FL100 UNIT/M (12:01)
[2022-01-16 12:10] LABS: ALBUMIN 4.3 g/dL (3.2-5.0); TOTAL PROTEIN 8.4 g/dL (6.3-8.2)
[2022-01-16 12:18] LABS: BILIRUBIN, TOTAL 0.2 mg/dL (0.0-1.4)
[2022-01-16 15:36] VITALS: BP 154/63
== END 2022-01-16 15:36 | disposition short-term general hospital (02) ==
LOC: ED 10:18
PROVIDERS: Family Medicine
DX: I21.4 Non-ST elevation (NSTEMI) myocardial infarction (principal); F79 Unspecified intellectual disabilities; I12.9 Hypertensive chronic kidney disease with stage 1 through stage 4 chronic kidney disease, or unspecified chronic kidney disease; E11.22 Type 2 diabetes mellitus with diabetic chronic kidney disease; N18.9 Chronic kidney disease, unspecified; Z79.4 Long term (current) use of insulin; Z20.822 Contact with and (suspected) exposure to COVID-19
CPT/HCPCS: J1650

== ENCOUNTER 2022-02-19 23:33 | Emergency (ER) | payer MEDICARE, OTHER ==
[~2022-02-19] VITALS: Ht 157.5 cm; Wt 65.0 kg
[~2022-02-19 23:33] MED LIST changes: +MYCOPHENOLAT500 MG PO; +NORVASC10 M1 PO; +PAROXETINE10 MG PO; +TRESIBA FL100 UNIT/M; +VITAMIN C1000 MG PO; +XARELTO10 MG PO; +ZINC220 MG
[2022-02-20] VITALS (14 sets, daily range): BP systolic 108–133; BP diastolic 62–75
[2022-02-20 00:19] LABS: HEMATOCRIT 28.9 % (37.0-47.0); IMMATURE GRANULOCYTES 0.6 % (0.0-5.0); MEAN CELL VOLUME 81.2 fL CALC (80.0-100.0); MEAN CORPUSCULAR HGB 25.3 pG CALC (26.0-32.0); MEAN CORPUSCULAR HGB CONC 31.1 g/dL CAL (32.0-36.0); NEUT# 20.67 thou/uL (2.00-7.15); RED BLOOD COUNT 3.56 mill/uL (4.20-5.60); RED CELL DISTRI WIDTH 13.9 % (11.5-15.5)
[2022-02-20 00:39] LABS: ALBUMIN 3.7 g/dL (3.2-5.0); TOTAL PROTEIN 7.5 g/dL (6.3-8.2)
[2022-02-20 00:47] LABS: BILIRUBIN, TOTAL 0.6 mg/dL (0.0-1.4); CREATININE 4.9 mg/dL (0.5-1.0); POTASSIUM 3.5 mmol/l (3.5-5.1)
== END 2022-02-20 03:33 | disposition short-term general hospital (02) ==
LOC: ED 23:33
PROVIDERS: Emergency Medicine
PROC: 5A09357 Assistance with Respiratory Ventilation, Less than 24 Consecutive Hours, Continuous Positive Airway Pressure (ICD-10-PCS; principal; 2022-02-20)
DX: I21.4 Non-ST elevation (NSTEMI) myocardial infarction (principal); J18.9 Pneumonia, unspecified organism; N17.9 Acute kidney failure, unspecified; I10 Essential (primary) hypertension; E11.9 Type 2 diabetes mellitus without complications; F79 Unspecified intellectual disabilities; F32.A Depression, unspecified; Z20.822 Contact with and (suspected) exposure to COVID-19